=== PATIENT | male | born 1955 | race Caucasian/White ===

== ENCOUNTER → 2022-03-07 | Outpatient (CLI) | payer MEDICARE, BC ==
--- NOTE | 2022-03-07 10:58 | CT ---
EXAMINATION TYPE: CT abdomen pelvis w con DATE OF EXAM: 03/07/2022 COMPARISON: None at this institution. HISTORY: bladder ca with tumor removal CT DLP: 1548 mGycm, Automated Exposure Control for Dose Reduction was Utilized. CONTRAST: CT scan of the abdomen and pelvis is performed with oral and with IV Contrast, patient injected with 70 mL of Isovue 300. FINDINGS: LUNG BASES:. Patient level of the mitral valve is present.. LIVER/GB: Dependent calcified gallstones in gallbladder. PANCREAS: No significant abnormality is seen. SPLEEN: No significant abnormality is seen. ADRENALS: No significant abnormality is seen. KIDNEYS: Symmetric cortical medullary uptake and excretion without hydronephrosis seen bilaterally. T here is 5.4 x 3.4 cm anterior midpole thin-walled cyst axial image 35 near the renal pelvis noted. Frye bcentimeter thin-walled cyst posteriorly midpole level axial image 34. Mild right-sided proximal hydr oureter and distal hydroureter without obstructing calculus. No delayed excretion noted. Urinary blad terrie shows adequate distention without intraluminal mass or calculus. BOWEL: Oral contrast extends to the hepatic flexure. PROSTATE/SEMINAL VESICLES: Mildly enlarged prostate consistent with BPH. LYMPH NODES: Prominent but subcentimeter lymph node in the left abdominal mesentery coronal image 30. OSSEOUS STRUCTURES: Moderate disc space narrowing lumbosacral junction. Anterior bridging osteophytes in the lower thoracic spine and upper lumbar spine. OTHER: Moderate-sized fat-containing left inguinal hernia. Mild to moderate calcified plaque of the a remi extends into branch vessels. IMPRESSION: No suspicious new mass or adenopathy to suggest neoplastic recurrence.
== END | disposition home or self-care (01) ==
LOC: RADCTMAIN 06:53
PROVIDERS: ATTEND Urology
DX: C67.9 Malignant neoplasm of bladder, unspecified (principal)
CPT/HCPCS: 82565; 84520; 74177; 36415; Q9967

== ENCOUNTER → 2023-01-21 | Outpatient (CLI) | payer MEDICARE, BC ==
[2023-01-21 14:59] LABS: HCT 51.2 % (39.6-50.0); HGB 17.4 d/dL (13.0-17.0); MCH 30.7 pg (27.0-32.0); MCV 90.5 FL (80.0-97.0); Mean Platelet Volume 11.4 FL (9.5-12.2); NRBC Per 100 WBC 0 X 10*3/uL (0.00-0.01); Platelet Count 200 X 10*3/uL (140-440); RBC 5.66 X 10*6/uL (4.40-5.60); RDW 12.9 % (11.5-14.5); WBC 6.32 X 10*3/uL (4.50-10.00)
[2023-01-21 16:19] LABS: Blood Urea Nitrogen 11.9 mg/dL (9.0-27.0); Carbon Dioxide 25.7 mmol/L (21.6-31.8); Chloride 103 mmol/L (96-109); Sodium 140 mmol/L (135-145)
== END | disposition home or self-care (01) ==
LOC: LABPAT 08:59
PROVIDERS: ATTEND Internal Medicine Clinical Cardiac Electrophysiology
DX: Z01.812 Encounter for preprocedural laboratory examination (principal); I48.19 Other persistent atrial fibrillation
CPT/HCPCS: 80051; 82565; 84520; 85027

== ENCOUNTER → 2023-01-22 | Outpatient (CLI) | payer MEDICARE, BC ==
--- NOTE | 2023-01-22 17:35 | CT ---
EXAMINATION TYPE: CT urogram wo/w con CT DLP: 2330.7 mGycm, Automated exposure control for dose reduction was used. DATE OF EXAM: 01/22/2023 3:19 PM COMPARISON: CT abdomen pelvis most recent from 03/07/2022 CLINICAL INDICATION:Male, 67 years old with history of C67.9 MALIGNANT NEOPLASM OF BLADDER; PHH, ZEENAT GNANT NEOPLASM OF BLADDER TECHNIQUE: Urogram of the abdomen and pelvis was performed before and after the administration of 100 cc of IV c ontrast Isovue 370 contrast. Delayed imaging was performed. Coronal and sagittal reformats were perfo rmed. One or more CT dose reduction strategies were utilized during this examination. 2D and 3D recon structions are performed to assist visualization of the urinary tract on a separate workstation. FINDINGS: GENITOURINARY: RIGHT KIDNEY AND URETER: No calculi. No hydronephrosis or hydroureter. No renal mass or other lesions . Similar mild prominence of the proximal right ureter again demonstrated. No urothelial lesions: no filling defect, dilation, stricture or wall thickening. LEFT KIDNEY AND URETER: No calculi. No hydronephrosis or hydroureter. No solid enhancing mass. Mildly increased size of left renal midpole simple thin-walled cyst measuring 6.0 x 4.1 cm . Adjacent small er cyst. No urothelial lesions: no filling defect, dilation, stricture or wall thickening. URINARY BLADDER: Normal, no calculi, mass or other lesions. REPRODUCTIVE: Unremarkable. ABDOMEN LIVER: Unremarkable. GALLBLADDER AND BILE DUCTS: Cholelithiasis. No biliary ductal dilatation. PANCREAS: Unremarkable. SPLEEN: Unremarkable. ADRENAL GLANDS: Unremarkable. STOMACH AND BOWEL: Distal colonic diverticulosis without evidence for acute diverticulitis. No eviden ce of bowel obstruction. PERITONEUM: No evidence of pneumoperitoneum, free fluid, or adenopathy. VASCULATURE: Atherosclerotic calcifications are present throughout the abdominal aorta and its branch es. No abdominal aortic aneurysm. MUSCULOSKELETAL: No acute osseous abnormalities. . Benign vertebral hemangioma within the T3 vertebra l body. Degenerative changes of the lumbar spine most pronounced at L5-S1. SOFT TISSUE/ABDOMINAL WALL: Small fat filled umbilical hernia. Fat filled left inguinal hernia. LOWER CHEST: The visualized lung bases are clear. Mitral annulus calcifications.. IMPRESSION: 1. No evidence of urolithiasis or suspicious enhancing renal/urothelial neoplasm. No CT evidence for recurrence. 2. Cholelithiasis. 3. Colonic diverticulosis without evidence for acute diverticulitis.
== END | disposition home or self-care (01) ==
LOC: RADCTMAIN 13:43
PROVIDERS: ATTEND Urology
DX: C67.9 Malignant neoplasm of bladder, unspecified (principal); K57.30 Diverticulosis of large intestine without perforation or abscess without bleeding; K80.20 Calculus of gallbladder without cholecystitis without obstruction
CPT/HCPCS: 74178; 74400; Q9967

== ENCOUNTER 2023-02-02 05:42 | Day surgery (SDC) | payer MEDICARE, BC ==
[2023-01-29 09:10] VITALS: BMI 26.4
[2023-02-02] MEDS ORDERED: SODIUM CHLORIDE 0.9% 1,000 ML IV ONE (06:17)
[2023-02-02] MEDS ORDERED: SUCCINYLCHOLINE CHLORIDE 200 MG/10 ML VIAL IV ONE (07:29)
[2023-02-02] MEDS ORDERED: MIDAZOLAM 2 MG/2 ML VIAL ONE (07:29)
[2023-02-02] MEDS ORDERED: fentaNYL (PF) 50 MCG/ML 2 ML AMP ONE (07:29)
[2023-02-02] MEDS ORDERED: PROPOFOL 10 MG/ML 20 ML VIAL IV ONE (07:29)
--- NOTE | 2023-02-02 07:46 | P.HPCAR ---
History of Present Illness This is Dr. Mckeon dictating an H/P on this patient The patient was interviewed and examined IMPRESSION / ASSESSMENT: Persistent atrial fibrillation with RVR, symptomatic with exercise intolerance and fatigue Refractory to therapy Mild cardiomyopathy, nonischemic Normal TSH of 2.4 Hypertension Dyslipidemia, on rosuvastatin PLAN: Proceed with A. fib ablation Continue anticoagulation HPI Patient complains of shortness of breath with exertion and fatigue ROS: No fever chills or rigors, no cough, phlegm or expectoration, no nausea, vomiting or diarrhea, no hematuria, dysuria, no musculoskeletal complaints, no strokes or seizures, no skin lesions. EXAMINATION: Pulse rate 111 at rest, Irregular heartbeat, rapid no murmurs Breath sounds are normal Abdomen is soft nontender 70s warm no edema REVIEW OF LABS, ECG & MEDICAL DATA TSH normal 2.4 Physical Exam Vitals: Vital Signs Temp Pulse Resp BP Pulse Ox 02/02/23 07:18 98.1 F 111 H 16 175/122 97 Intake and Output 02/01/23 02/02/23 02/02/23 22:59 06:59 14:59 Intake Total 50 0 Balance 50 0 Intake: IV 50 0 Other: Weight 91.4 kg Past Medical History Past Medical History: Atrial Fibrillation, Cancer, Hyperlipidemia, Hypertension Additional Past Medical History / Comment(s): BLADDER CANCER History of Any Multi-Drug Resistant Organisms: None Reported Past Surgical History: Bladder Surgery Additional Past Surgical History / Comment(s): BLADDER CANCER SX. COLONOSCOPY Past Anesthesia/Blood Transfusion Reactions: No Reported Reaction Smoking Status: Former smoker - Past Family History Mother Family Medical History: No Reported History Physical Examination Vital Signs Temp Pulse Resp BP Pulse Ox 02/02/23 07:18 98.1 F 111 H 16 175/122 97 Intake and Output 02/01/23 02/02/23 02/02/23 22:59 06:59 14:59 Intake Total 50 0 Balance 50 0 Intake: IV 50 0 Other: Weight 91.4 kg Results Current Medications Generic Name Dose Route Start Last Admin Trade Name Freq PRN Reason Stop Dose Admin Lactated Ringer's 1,000 mls @ 20 mls/hr 02/02/23 06:15 Lactated Ringers IV 03/04/23 06:16 .Q24H CAROLYN Sodium Chloride 1,000 mls @ 20 mls/hr 02/02/23 06:15 Saline 0.9% IV 03/04/23 06:16 .Q24H CAROLYN Intake and Output 02/01/23 02/02/23 02/02/23 22:59 06:59 14:59 Intake Total 50 0 Balance 50 0 Intake: IV 50 0 Other: Weight 91.4 kg Patient Weight 02/03/23 06:59 Weight 91.4 kg
[2023-02-02] MEDS ORDERED: HEPARIN SOD,PORK IN 0.45% NACL 25,000 UNIT in 0.45% NACL 1 250ML.BAG IV ONE (08:09)
[2023-02-02] MEDS ORDERED: LIDOCAINE 1% INJ 10MG/ML (20 ML MDV) SQ ONE (08:17)
[2023-02-02] MEDS ORDERED: IOPAMIDOL-370 100ML BTL INJ ONE (10:23)
[2023-02-02] MEDS ORDERED: ACETAMINOPHEN TAB 325 MG TAB PO PRN (11:00)
[2023-02-02] MEDS ORDERED: ACETAMINOPHEN IV (For NPO) 1,000 MG in EMPTY BAG 1 BAG IVPB ONE (11:00)
[2023-02-02] MEDS ORDERED: IV FLUID CONTINUATION 1,000 ML IV ONE (11:13)
--- NOTE | 2023-02-02 11:20 | P.EPPROC ---
- EP Procedure Note Electrophysiology Procedure Note: PROCEDURE A. fib ablation/PVI/left atrial roof ablation/ablation posterior wall the LA DIAGNOSIS Persistent Atrial fibrillation, symptomatic, refractory to therapy RESULT No left atrial appendage mass seen on intracardiac echo, reduced LV systolic function with elevated LA and RA pressures Thickened pericardium with exudative pericarditis at the base of the LV and behind the LA Very large pulmonary veins especially left superior, left inferior and right superior pulmonary veins Successful A. fib ablation/pulmonary vein isolation of all veins using cryo- ablation Complete entrance block in all 4 veins confirmed Left atrial roof ablation Left atrial posterior wall ablation No evidence for phrenic nerve injury Esophageal deflection YES Patient remained in atrial fibrillation Electrical cardioversion with a synchronized shock across the chest YES , normal AH and HV intervals in sinus rhythm with heart rates in the 50s, sinus symptoms PROCEDURE DETAILS Written informed consent prior to procedure. Patient brought to the EP lab. General anesthesia given. Heparin administered. A city maintained above 300 seconds Both groins prepped and draped per protocol and venous sheaths placed. Esophagus intubated, circa catheter for temperature monitoring an endoscope for possible esophageal deflection. Phrenic nerve monitoring performed. Esophageal temperature monitoring performed. Esophageal deflection performed if circa catheter overlapping with the balloon or circa temperature less than 27.5C Intracardiac echocardiography performed. Pericardium evaluated. Left atrial appendage evaluated. Left atrium evaluated along with pulmonary veins Transseptal catheterization performed under fluoroscopic guidance and intracardiac echo guidance Cryoablation sheath exchanged, balloon catheter along with achieve catheter placed in the left atrium. Pulmonary veins isolated in the following sequence: Left superior pulmonary vein followed by left inferior pulmonary vein, followed by right inferior pulmonary vein and lastly right superior pulmonary vein. Phrenic nerve stimulation along with capture thresholds within the SVC and right superior pulmonary vein to identify the phrenic nerve proximity to the cryo- balloon. Pulmonary veins isolated and confirmed with entrance and exit block. Phrenic nerve integrity confirmed at the end of the procedure Ablation of the left atrial roof performed with sequential lesions from the left superior to the right superior pulmonary veins. Ablation of the electrograms confirmed Ablation of the left atrial posterior wall performed with cannulation of the inferior branch of the right inferior or the inferior branch of the left inferior vein to achieve ablation of the posterior LA Ablation of electrograms confirmed Electrical cardioversion performed for persistence of atrial fibrillation despite successful ablation. Diagnostic catheters for the high right atrium, His bundle, coronary sinus placed. LA and RA pressures recorded RA pressure: 22/02/12 LA pressure: 27/02/15 Diagnostic EP study with coronary sinus pacing and recording Baseline measurements: Post cardioversion, heart rate in the 50s, intermittent junctional rhythm under general anesthesia QRS 93 ms, QT 345 ms AH 84 and HV 37 ms Venous sheaths were removed and hemostasis assured with a closure device. Patient extubated and transferred to recovery Increase procedural time During ablation multiple attempts had to be made to move the esophagus a safe distance of the from the pulmonary vein draining cryoablation, to avoid excessive thermal cooling of the esophagus This took extra time and effort to keep the esophagus a safe distance away from the cryoablation balloon. Very large pulmonary veins especially both the left-sided veins and the right superior pulmonary veins Since veins were quite large, the balloon position was ostial rather than antral Therefore multiple shorter ablation she had to be performed for 2 minutes each followed by antral level isolation outside the pulmonary veins Subsequently posterior wall ablation was performed to correct these lesions The left atrial roof was very long on account of the size of the left atrium Multiple lesions needed for successful cryoablation isolation of the pulmonary vein PROCEDURES PERFORMED Diagnostic EP study CS pacing and recording Left and right transseptal catheterization Catheter the mapping of the tachycardia Intracardiac echocardiography Pulmonary vein isolation with transseptal and comprehensive EPS, [id number] Extended procedure duration Left atrial roof line, +[id number] Linear ablation, left atrium, +11077 Electrical cardioversion with a synchronized shock across the chest [id number]
[2023-02-02] MEDS: LACTATED RINGERS 1,000 ML IV SCH (12:52)
[2023-02-02] MEDS: SODIUM CHLORIDE 0.9% 1,000 ML IV SCH (12:52)
[2023-02-02] MEDS ORDERED: MAGNESIUM OXIDE 400 MG TAB PO SCH (21:00)
[2023-02-02] MEDS: APIXABAN 5 MG TAB PO SCH (21:03)
[2023-02-03] MEDS: SODIUM CHLORIDE 0.9% 1,000 ML IV SCH (01:39)
[2023-02-03] MEDS: LACTATED RINGERS 1,000 ML IV SCH (01:39)
[2023-02-03] MEDS: APIXABAN 5 MG TAB PO SCH (07:43)
[2023-02-03 07:51] VITALS: BP 120/80; PULSE 61; RESP 16; TEMP 98.4
[2023-02-03] MEDS ORDERED: ATORVASTATIN 20 MG TAB PO SCH (09:00)
[2023-02-03] MEDS ORDERED: METOPROLOL SUCCINATE (ER) 100 MG TAB.ER.24H PO SCH (09:00)
--- NOTE | 2023-02-03 17:09 | P.DS ---
Providers Attending physician: John Mckeon Primary care physician: [facility] Course: Patient is doing well. Groin of healed well No chest discomfort no undue shortness of breath no dizziness or lightheadedness He's been ambulating around the room and has walked to the bathroom Mild sore throat On examination, blood pressure 20/80. Pulse rate in the 60s afebrile Heart sounds S1-S2 normal line breath sounds are clear no rhonchi no crackles No hematoma Twelve-lead EKG shows sinus mechanism normal WA interval and nonspecific ST-T abnormality narrow QRS Impression Persistent atrial fibrillation with RVR Cardiomyopathy status post ablation for persistent atrial fibrillation PVI posterior wall ablation Intracardiac echo revealed very large pulmonary veins as well as a very thickened pericardium with extended to pericarditis at the base of the LV and behind the left atrium Electrical cardioversion performed at the end of the procedure Plan Continue anticoagulation Reduced dose of metoprolol succinate 200 mg by mouth daily Continue rosuvastatin Follow Dr. Mckeon in 1 week Plan - Discharge Summary Discharge Rx Participant: No New Discharge Prescriptions: New RX: Metoprolol Succinate [Toprol XL] 100 mg PO DAILY #90 tab Discontinued Metoprolol Succinate [Toprol XL] 200 mg PO DAILY No Action Apixaban [Eliquis] 5 mg PO BID RX: Rosuvastatin Calcium 10 mg PO DAILY RX: Magnesium 250 mg PO HS Discharge Medication List Apixaban [Eliquis] 5 mg PO BID 01/29/23 [History] RX: Magnesium 250 mg PO HS 01/29/23 [History] RX: Rosuvastatin Calcium 10 mg PO DAILY 01/29/23 [History] RX: Metoprolol Succinate [Toprol XL] 100 mg PO DAILY #90 tab 02/03/23 [Rx] Follow up Appointment(s)/Referral(s): John Mckeon MD [STAFF PHYSICIAN] - 02/12/23 9:15 am Patient Instructions/Handouts: A-fib (Atrial Fibrillation) (DC) Discharge Disposition: HOME SELF-CARE
== END 2023-02-03 12:10 | disposition home or self-care (01) ==
LOC: CATHEP 05:42 → 6NMEDSUR 10:46 → CATHEP 02-03 12:10
PROVIDERS: ATTEND Internal Medicine Clinical Cardiac Electrophysiology
DX: I48.0 Paroxysmal atrial fibrillation (principal); I48.19 Other persistent atrial fibrillation; I42.8 Other cardiomyopathies; I10 Essential (primary) hypertension; E78.5 Hyperlipidemia, unspecified; Z79.899 Other long term (current) drug therapy
CPT/HCPCS: 93656; 93657; 86900; 86901; 84443; 86850; J2001; Q9967; J1644

== ENCOUNTER → 2025-01-04 | Outpatient (CLI) | payer MEDICARE, BC ==
[2025-01-04 13:52] LABS: African American GFR (CKD) >90 (>60 ml/min/1.73 sqM); Blood Urea Nitrogen 13 mg/dL (9-20); Non-African American GFR(CKD) 85 (>60 ml/min/1.73 sqM)
--- NOTE | 2025-01-04 15:51 | CT ---
CT urogram. HISTORY: Bladder cancer. COMPARISON: 01/22/2023. TECHNIQUE: Multiple axial images obtained through the abdomen and pelvis before and after the unevent ful administration nonionic IV contrast. Delayed postcontrast images were obtained. FINDINGS: Lung bases are clear. On the pre-IV contrast images, there are no renal calcifications or ureteral calcifications. There a re no gallstones. There are multiple large gallstones with no gallbladder distention, wall thickening or pericholecysti c fluid.. There are no focal masses within the liver, pancreas, spleen or adrenal glands and there is no organo megaly. Kidneys excrete contrast promptly and symmetrically and there is no solid renal mass, or filling def ect within the renal collecting systems, ureters or urinary bladder. There is mild chronic bilateral hydronephrosis There is a large stable bilobed exophytic cortical cyst of the mid left kidney. There is moderate prostatic hypertrophy. The bowel loops are normal in caliber and there is no dilatation or obstruction. No inflammatory starr ges are identified in the bowel wall or mesentery. There is no free intraperitoneal air or fluid. There is no pelvic mass, free fluid, abscess or adenopathy. The osseous structures are intact. IMPRESSION: 1. No evidence of recurrent or metastatic disease. 2. No solid renal mass or renal calcification or filling defect within the renal collecting systems o r ureters. 3. Stable mild chronic hydronephrosis bilaterally.. 4. Stable cholelithiasis. [facility], Workstation: [email or web address] 01/04/2025 3:49 PM
== END | disposition home or self-care (01) ==
LOC: RADCTMAIN 13:04
PROVIDERS: ATTEND Family Medicine
DX: K80.20 Calculus of gallbladder without cholecystitis without obstruction (principal); N13.30 Unspecified hydronephrosis; Z85.51 Personal history of malignant neoplasm of bladder
CPT/HCPCS: 82565; 84520; 74178; 36415; 74400; Q9967